=== PATIENT | male | born 1945 | race Caucasian/White ===

== ENCOUNTER 2020-09-10 10:15 | Day surgery (SDC) | payer OTHER, SELFPAY ==
[2020-09-10] MEDS: Tropicam./Phenyleph. (1/2.5%) 5 ML BTL OS ×3 (11:07→11:23)
[2020-09-10 11:15] VITALS: BP 110/79; PULSE 60; RESP 16; TEMP 36; O2SAT 96
--- NOTE | 2020-09-10 11:26 | ANES.PREOP_ITS ---
General Info Date of Service Date Performed: 09/10/20 Height: 5 ft 10 in Weight: 127.6 kg Body Mass Index (BMI): 40.4 Surgical Procedure: Operation Date: 09/10/20 13:55 Proposed Procedures Side Surgeon p Cataract Extraction with IOL Implant Left Ivan Kelly MD Meds Allergies and Home Medications Allergies Allergy/AdvReac Type Severity Reaction Status Date / Time No Known Allergies Allergy Unverified 09/10/20 11:12 Home Medication Medication Instructions Recorded albuterol sulfate 2 puff INHALATION DIRECTED 09/05/20 amlodipine 5 mg PO DAILY 09/05/20 atenolol 100 mg PO DAILY 09/05/20 citalopram 40 mg PO DAILY 09/05/20 cyanocobalamin (vitamin B-12) 1,000 mcg PO DAILY 09/05/20 [Vitamin B-12] fluticasone propionate 1 spray INTRANASAL BID 09/05/20 hydrochlorothiazide 50 mg PO QAM 09/05/20 hydrocodone-acetaminophen 1 tab PO QID PRN 09/05/20 lidocaine 1 applic TOPICAL TID PRN 09/05/20 methimazole 10 mg PO DAILY 09/05/20 potassium chloride 20 meq PO DAILY 09/05/20 Current Visit Medications: Current Medications Generic Name Dose Route Start Last Admin Trade Name Freq PRN Reason Stop Dose Admin Acetaminophen 1,000 mg 09/10/20 06:00 Acetaminophen 500 Mg Tab PO Q4H PRN PRN Miscellaneous Medication 0 ml 09/10/20 06:00 Prednisolone 1%, Moxifloxacin 0.5%, Nepafenac 0.1% 5ml Btl OS DIRECTED [facility] Miscellaneous Medication 0 ml 09/10/20 06:00 09/10/20 11:14 Tropicam./Phenyleph. 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.042 Medical History Medical History AAA (abdominal aortic aneurysm) Anxiety H/O agent [place] exposure Headache Hypertension Insomnia, unspecified [facility] current use of anticoagulant Lumbosacral spondylosis without myelopathy Obesity Osteoarthrosis PTSD (post-traumatic stress disorder) 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 Tobacco use Surgical History Surgical History (Updated 09/10/20 @ 11:11 by Scarlett Posey) History of pancreatic surgery Hx of colonoscopy Hx of inguinal hernia repair Hx of nasal polypectomy Hx of nasal septoplasty Hx of total knee replacement bilateral Tobacco Smoking/Tobacco Use Status: Former Tobacco Use Alcohol Alcohol Intake: never Substance Use Substance use: Never Substance use type: does not use Vital Signs and Lab Results Vital Signs Most Recent Vital Signs in EMR: Most Recent Vital Signs Temp Pulse Resp BP Pulse Ox 36 C L 60 16 110/79 96 09/10/20 11:15 09/10/20 11:15 09/10/20 11:15 09/10/20 11:15 09/10/20 11:15 Lab Results Blood Type / Crossmatch: No Data to Display Complete Blood Count: No Data to Display Complete Metabolic Panel: No Data to Display Liver Function Panel: No Data to Display Coagulation Panel: No Data to Display Cardiac Panel: No Data to Display Arterial Blood Gas: No Data to Display Venous Blood Gas: No Data to Display Pancreas Panel: No Data to Display Thyroid Panel: No Data to Display Infectious Disease: No Data to Display Blood Cultures: No Data to Display Toxicology Panel: No Data to Display Anesthesia Assessment and Plan Anesthesia History Personal History: No History of Anesthesia Complications Family History: No Family History of Anesthesia Complications Exercise Tolerance Exercise Tolerance: Metabolic Equivalents>4 Cardiac & Pulmonary Exam Cardiac Exam: Normal S1/S2 Heart Sounds Pulmonary Exam: Clear Bilateral Breath Sounds Airway Exam Known Difficult Airway: No Mallampati Class: 2 Mouth Opening: Normal (> 3cm) Thyromental Distance: Greater than 3 cm Neck Range of Motion: Full ROM Neck Circumference: Thick Teeth Condition: Removable Dentures/Plates Upper ASA Classification ASA Score: ASA 3 Emergency Case?: No NPO Status NPO Status: NPO Clears >2 hours, Solids >8 hours Anesthesia Plan Anesthesia Technique: MAC Anesthesia Airway Planned: Natural Airway Monitors Used: Standard Monitors
[2020-09-10 11:36] VITALS: BMI 40.4
[2020-09-10] MEDS: Tetracaine 0.5% 4 ML BTL OS (12:42)
[2020-09-10] MEDS: Balanced Salt Soln.-PLUS 500 ML BAG (12:42)
[2020-09-10] MEDS: Lidocaine 1% Pres-Free 5 ML VIAL (12:43)
[2020-09-10] MEDS: Duovisc Viscoelastic System EACH 1 EACH (12:43)
[2020-09-10] MEDS: Lidocaine 2% Jelly 6 ML SYR (12:44)
[2020-09-10] MEDS: Povidone-Iodine Ophth 30 ML BTL (12:45)
--- NOTE | 2020-09-10 13:04 | PDOC.DSDIS_ITS ---
Discharge Plan Disposition Patient Disposition: HOME Condition: Good Discharge Details Attending Provider: Ivan Kelly Primary Care Provider: Edgardo Newby Home Meds and New Rx's Prescriptions: No Action citalopram 40 mg Tablet 40 mg PO DAILY RF: 0 atenolol 100 mg Tablet 100 mg PO DAILY RF: 0 hydrochlorothiazide 50 mg Tablet 50 mg PO QAM RF: 0 hydrocodone-acetaminophen 5-325 mg Tablet 1 tab PO QID PRNRF: 0 cyanocobalamin (vitamin B-12) [Vitamin B-12] 1,000 mcg Tablet 1,000 mcg PO DAILY RF: 0 amlodipine 5 mg Tablet 5 mg PO DAILY RF: 0 methimazole 5 mg Tablet 10 mg PO DAILY RF: 0 albuterol sulfate 90 mcg/actuation Hfa Aerosol Inhaler 2 puff INHALATION DIRECTED RF: 0 fluticasone propionate 50 mcg/actuation [place],Suspension 1 spray INTRANASAL BID RF: 0 lidocaine 5 % Ointment 1 applic topical TID PRNRF: 0 potassium chloride 10 mEq Tablet Extended Release 20 meq PO DAILY RF: 0 Discharge Instructions Stand Alone Forms: Post-op Block Cataract, Post-op Topical Cataract, Nighat Whittaker (DSU) Discharge Orders Discharge Orders: Discharge Order (Routine); Ordered 09/10/20 Ordered By: Ivan Kelly DS: Diagnosis Discharge Diagnosis (1) Nuclear sclerotic cataract of left eye: Status: Resolved (2) Cortical cataract of left eye: Status: Resolved (3) Posterior subcapsular age-related cataract of left eye: Status: Resolved
--- NOTE | 2020-09-10 13:06 | W.PM.OP ---
Date of service: 09/10/20 Time of Service: 13:06 Operative Note Operative Note DATE OF PROCEDURE: 09/10/20 PRE-OP DIAGNOSIS: Nuclear/cortical/posterior subcapsular cataract, left eye POST-OP DIAGNOSIS: same PROCEDURE: Cataract extraction using phacoemulsification with intraocular lens implant, left eye SURGEON: Ivan Kelly ANESTHESIA TYPE: Local By Surgeon and MAC Refer to Anesthesia Record PATHOLOGY: none sent COMPLICATIONS: None Patient was transported to: same day Patient's condition: stable Implants: Lm and Lm Vision / [employer] Tecnis [id number] Indications: Progressive decreased vision due to cataract, left eye Procedure Description: CATARACT SURGERY OPERATIVE REPORT PREOPERATIVE DIAGNOSIS: Nuclear/cortical/posterior subcapsular cataract, left eye POSTOPERATIVE DIAGNOSIS: Same OPERATION: Cataract extraction using phacoemulsification with posterior chamber intraocular lens implant, left eye. IOL: IOL Resident Care Technician/Model: [employer] / JW Tecnis [id number] IOL Power: + +20.50 diopters IOL Serial Number: [id number] Optic Diameter: 6.0mm Haptic/Overall Diameter: 13.0mm PHACO INFO: [employer] Vision System with OZil and Active [employer]uidics Cumulative Dispersed Energy (CDE): 12.66 seconds SURGEON: Ivan Kelly MD, FAITH ANESTHESIA: Monitored Anesthesia Care (MAC), with local sub-tenon's anesthetic infiltration COMPLICATIONS: None SPECIMENS: None INDICATIONS FOR PROCEDURE: The patient is a 75-year-old gentleman with history of diminished visual acuity in his left eye secondary to the development of nuclear/cortical/posterior subcapsular cataract in the left eye. The option of cataract surgery was offered to the patient and he felt he was symptomatic enough that he wished to proceed. PROCEDURE: The correct surgical eye was identified and marked as the left eye and the pupil was dilated in the preoperative area using mydriatics and cycloplegics. The dilated pupil size was 7.0 mm. Oral sedation was administered in the form of an Imprimis MKO Melt (midazolam 3mg/ketamine 25mg/ondansetron 2mg). The patient was brought to the operating room where cardiopulmonary monitoring was instituted and surgical time-out was performed, confirming the correct operative eye and IOL power. Topical anesthesia was administered and ophthalmic povidone-iodine 5% was instilled into the conjunctival fornices. Lidocaine gel was applied to the cornea and the nora-ocular area was prepped with Betadine 10% solution and draped in the usual sterile fashion for intraocular surgery, including an aperture drape. A Tegaderm transparent film dressing was cut in half and used to cover the lashes and lid margins. Care was taken to sequester the lashes and lid margins under the Tegaderm dressing. A lid speculum was placed between the lids of the operative eye and the Jessica-Jimenez operating microscope was maneuvered into position. Mateus scissors were then used to make a conjunctival buttonhole approximately 6mm posterior to the limbus in the inferonasal quadrant. Blunt dissection was carried out to expose bare sclera, and a blunt-tipped sub-tenon?s anesthesia cannula was introduced and passed posteriorly along the globe where non-preserved plain lidocaine was injected into posterior sub-Tenon?s space. A sideport knife was used to make a paracentesis port superior/superiortemporally. Intraocular phenylephrine/lidocaine was injected into the anterior chamber. The anterior chamber was then filled with viscoelastic. A 2.4mm keratome knife was used to create a half-thickness groove at the limbus and then to construct a three-plane near-clear corneal tunnel extending 2.0mm into clear cornea in the temporal position. . A flap was raised on the anterior capsule and capsulorhexis forceps were used to complete a continuous curvilinear capsulorhexis of 5.5 mm. Balanced salt solution was then used to perform cortical cleaving hydrodissection and nuclear hydrodelineation until the lens could be freely rotated within the capsular bag. The lens nucleus was then disassembled and removed within the capsular bag and iris plane using phacoemulsification. Residual cortical material was removed using the 45-degree angled silicone I/A tip with 0.3mm port. The posterior capsule was carefully polished to remove as much residual lens epithelial cells as safely possible. The capsular bag was then inflated and the anterior chamber deepened with viscoelastic. The lens implant described above was inserted into the capsular bag using the [place] Injector. A Kuglen hook was used to dial the IOL into position. Residual viscoelastic was then removed first from posterior to the IOL, then from the anterior chamber using the I/A handpiece. The lens implant was noted to center nicely within the capsular bag. The incisions were stromally hydrated, and the anterior chamber was reformed using BSS. Then 0.5cc of moxifloxacin 1.0mg/ml were injected into the capsular bag and anterior chamber. The incisions were checked with a Weck spear and found to be secure. Several drops of ophthalmic povidone-iodine 5% were then applied to the eye followed by two drops of Imprimis combination prednisolone/moxifloxacin/nepafenac solution. The drapes were removed and a clear plastic protective eye shield was placed over the eye. The patient was then returned to Same Day Surgery in stable condition.
[2020-09-10 13:11] VITALS: BP 129/79; PULSE 61; RESP 16; TEMP 36.9; O2SAT 95
--- NOTE | 2020-09-10 13:14 | W.ANESPOSTOP ---
Postoperative Evaluation Date, Time and Location Date Performed: 09/10/20 Time Performed: 13:15 Patient Location: Day Surgery Unit Vital Signs Most Recent Imported Vital Signs: Most Recent Vital Signs Temp Pulse Resp BP Pulse Ox 36.9 C 61 16 129/79 95 09/10/20 13:11 09/10/20 13:11 09/10/20 13:11 09/10/20 13:11 09/10/20 13:11 Pain Score Most Recent Pain Score: Most Recent Pain Score Pain Level 0 09/10/20 13:11 Assessment Mental Status: Awake (Alert & Oriented to Patient Baseline) Airway and Respiratory Function: Patent airway with normal (patient baseline) respiratory exam Cardiovascular Function: Hemodynamically Stable Hydration Status: Adequately Hydrated Nausea & Vomiting: No Nausea or Vomiting Pain: Pt. Denies Any Pain Peripheral Nerve Block: Patient did not receive a nerve block
[2020-09-10 13:35] VITALS: BP 117/73; PULSE 60; RESP 16; TEMP 36.6; O2SAT 95
== END 2020-09-10 13:35 | disposition home or self-care (01) ==
PROVIDERS: PCP Physician Assistant Medical; Visit Provider Ophthalmology
PROC: (CPT 66984; principal; 2020-09-10 13:45)
DX: H25.12 Age-related nuclear cataract, left eye (principal); H25.042 Posterior subcapsular polar age-related cataract, left eye
CPT/HCPCS: 66984; V2632

== ENCOUNTER 2020-09-24 10:25 | Day surgery (SDC) | payer OTHER, SELFPAY ==
--- NOTE | 2020-09-23 18:53 | ANES.PREOP_ITS ---
General Info Date of Service Date Performed: 09/24/20 Height: 5 ft 10 in Weight: 127.6 kg Body Mass Index (BMI): 40.4 Surgical Procedure: Operation Date: 09/24/20 13:40 Proposed Procedures Side Surgeon p Cataract Extraction with IOL Implant Right Ivan Kelly MD Meds Allergies and Home Medications Allergies Allergy/AdvReac Type Severity Reaction Status Date / Time No Known Allergies Allergy Unverified 09/24/20 10:43 Home Medication Medication Instructions Recorded albuterol sulfate 2 puff INHALATION DIRECTED 09/05/20 amlodipine 5 mg PO DAILY 09/05/20 atenolol 100 mg PO DAILY 09/05/20 citalopram 40 mg PO DAILY 09/05/20 cyanocobalamin (vitamin B-12) 1,000 mcg PO DAILY 09/05/20 [Vitamin B-12] fluticasone propionate 1 spray INTRANASAL BID 09/05/20 hydrochlorothiazide 50 mg PO QAM 09/05/20 hydrocodone-acetaminophen 1 tab PO QID PRN 09/05/20 lidocaine 1 applic TOPICAL TID PRN 09/05/20 methimazole 10 mg PO DAILY 09/05/20 potassium chloride 20 meq PO DAILY 09/05/20 Current Visit Medications: Current Medications Generic Name Dose Route Start Last Admin Trade Name Freq PRN Reason Stop Dose Admin Acetaminophen 1,000 mg 09/24/20 06:00 Acetaminophen 500 Mg Tab PO Q4H PRN PRN Miscellaneous Medication 0 ml 09/24/20 06:00 Prednisolone 1%, Moxifloxacin 0.5%, Nepafenac 0.1% 5ml Btl OD DIRECTED [facility] Miscellaneous Medication 0 ml 09/24/20 06:00 Tropicam./Phenyleph. (1/2.5%) 5 Ml Btl OD DIRECTED [facility] Tetracaine HCl 0 ml 09/24/20 06:00 Tetracaine 0.5% 4 Ml Btl OD DIRECTED [facility] PFSH Active Problems Active Problems: Problem Status Onset Code Posterior subcapsular age-related cataract, right eye H25.041 Cortical cataract of right eye H26.9 Nuclear sclerotic cataract of right eye H25.11 Nuclear sclerotic cataract of left eye H25.12 Cortical cataract of left eye H26.9 Posterior subcapsular age-related cataract of left eye H25.042 Medical History Medical History AAA (abdominal aortic aneurysm) Anxiety H/O agent [place] exposure Headache Hypertension Insomnia, unspecified [employer] current use of anticoagulant Lumbosacral spondylosis without myelopathy Obesity Osteoarthrosis PTSD (post-traumatic stress disorder) 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 Tobacco use Surgical History Surgical History (Updated 09/24/20 @ 10:42 by Scarlett Posey) History of pancreatic surgery Hx of cataract surgery Hx of colonoscopy Hx of inguinal hernia repair Hx of nasal polypectomy Hx of nasal septoplasty Hx of total knee replacement bilateral Tobacco Smoking/Tobacco Use Status: Former Tobacco Use Alcohol Alcohol Intake: never Substance Use Substance use: Never Substance use type: does not use Vital Signs and Lab Results Lab Results Blood Type / Crossmatch: No Data to Display Complete Blood Count: No Data to Display Complete Metabolic Panel: No Data to Display Liver Function Panel: No Data to Display Coagulation Panel: No Data to Display Cardiac Panel: No Data to Display Arterial Blood Gas: No Data to Display Venous Blood Gas: No Data to Display Pancreas Panel: No Data to Display Thyroid Panel: No Data to Display Infectious Disease: No Data to Display Blood Cultures: No Data to Display Toxicology Panel: No Data to Display Anesthesia Assessment and Plan Anesthesia History Personal History: No History of Anesthesia Complications Family History: No Family History of Anesthesia Complications Exercise Tolerance Exercise Tolerance: Metabolic Equivalents>4 Pertinent Negatives Pertinent Negatives: No Symptoms of GERD, No Major Cardiovascular Symptoms or Complaints (HTN, AAA, ), No Major Pulmonary Symptoms or Complaints (COPD ) and No History of CVA/TIA Cardiac & Pulmonary Exam Cardiac Exam: Normal S1/S2 Heart Sounds Pulmonary Exam: Clear Bilateral Breath Sounds Airway Exam Known Difficult Airway: No Mallampati Class: 2 Mouth Opening: Normal (> 3cm) Thyromental Distance: Greater than 3 cm Neck Range of Motion: Full ROM Neck Circumference: Thick Teeth Condition: Removable Dentures/Plates Upper ASA Classification ASA Score: ASA 3 Emergency Case?: No NPO Status NPO Status: NPO Clears >2 hours, Solids >8 hours Anesthesia Plan Resuscitation Status: Full Code Anesthesia Technique: MAC Anesthesia Airway Planned: Natural Airway Monitors Used: Standard Monitors Preoperative Comments:: had MKO for previous cat
--- NOTE | 2020-09-24 10:27 | ANES.PREOP_ITS ---
General Info Date of Service Date Performed: 09/24/20 Height: 5 ft 10 in Weight: 127.6 kg Body Mass Index (BMI): 40.4 Surgical Procedure: Operation Date: 09/24/20 13:40 Proposed Procedures Side Surgeon p Cataract Extraction with IOL Implant Right Ivan Kelly MD Meds Allergies and Home Medications Allergies Allergy/AdvReac Type Severity Reaction Status Date / Time No Known Allergies Allergy Unverified 09/20/20 09:00 Home Medication Medication Instructions Recorded albuterol sulfate 2 puff INHALATION DIRECTED 09/05/20 amlodipine 5 mg PO DAILY 09/05/20 atenolol 100 mg PO DAILY 09/05/20 citalopram 40 mg PO DAILY 09/05/20 cyanocobalamin (vitamin B-12) 1,000 mcg PO DAILY 09/05/20 [Vitamin B-12] fluticasone propionate 1 spray INTRANASAL BID 09/05/20 hydrochlorothiazide 50 mg PO QAM 09/05/20 hydrocodone-acetaminophen 1 tab PO QID PRN 09/05/20 lidocaine 1 applic TOPICAL TID PRN 09/05/20 methimazole 10 mg PO DAILY 09/05/20 potassium chloride 20 meq PO DAILY 09/05/20 Current Visit Medications: Current Medications Generic Name Dose Route Start Last Admin Trade Name Freq PRN Reason Stop Dose Admin Acetaminophen 1,000 mg 09/24/20 06:00 Acetaminophen 500 Mg Tab PO Q4H PRN PRN Miscellaneous Medication 0 ml 09/24/20 06:00 Prednisolone 1%, Moxifloxacin 0.5%, Nepafenac 0.1% 5ml Btl OD DIRECTED [facility] Miscellaneous Medication 0 ml 09/24/20 06:00 Tropicam./Phenyleph. (1/2.5%) 5 Ml Btl OD DIRECTED [facility] Tetracaine HCl 0 ml 09/24/20 06:00 Tetracaine 0.5% 4 Ml Btl OD DIRECTED [facility] PFSH Active Problems Active Problems: Problem Status Onset Code Posterior subcapsular age-related cataract, right eye H25.041 Cortical cataract of right eye H26.9 Nuclear sclerotic cataract of right eye H25.11 Nuclear sclerotic cataract of left eye H25.12 Cortical cataract of left eye H26.9 Posterior subcapsular age-related cataract of left eye H25.042 Medical History Medical History AAA (abdominal aortic aneurysm) Anxiety H/O agent [place] exposure Headache Hypertension Insomnia, unspecified [employer] current use of anticoagulant Lumbosacral spondylosis without myelopathy Obesity Osteoarthrosis PTSD (post-traumatic stress disorder) 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 Tobacco use Surgical History Surgical History History of pancreatic surgery Hx of colonoscopy Hx of inguinal hernia repair Hx of nasal polypectomy Hx of nasal septoplasty Hx of total knee replacement bilateral Tobacco Smoking/Tobacco Use Status: Former Tobacco Use Alcohol Alcohol Intake: never Substance Use Substance use: Never Substance use type: does not use Vital Signs and Lab Results Lab Results Blood Type / Crossmatch: No Data to Display Complete Blood Count: No Data to Display Complete Metabolic Panel: No Data to Display Liver Function Panel: No Data to Display Coagulation Panel: No Data to Display Cardiac Panel: No Data to Display Arterial Blood Gas: No Data to Display Venous Blood Gas: No Data to Display Pancreas Panel: No Data to Display Thyroid Panel: No Data to Display Infectious Disease: No Data to Display Blood Cultures: No Data to Display Toxicology Panel: No Data to Display Anesthesia Assessment and Plan Anesthesia History Personal History: No History of Anesthesia Complications Family History: No Family History of Anesthesia Complications Airway Exam Known Difficult Airway: No Mallampati Class: 2 Mouth Opening: Normal (> 3cm) Thyromental Distance: Greater than 3 cm Neck Range of Motion: Full ROM Neck Circumference: Thick Teeth Condition: Removable Dentures/Plates Upper
[2020-09-24] MEDS: Tropicam./Phenyleph. (1/2.5%) 5 ML BTL OD ×3 (10:44→10:55)
[2020-09-24 10:47] VITALS: BP 110/71; PULSE 58; RESP 16; TEMP 36.5; O2SAT 95
[2020-09-24 11:34] VITALS: BMI 40.4
[2020-09-24] MEDS: Balanced Salt Soln.-PLUS 500 ML BAG (11:50)
[2020-09-24] MEDS: Tetracaine 0.5% 4 ML BTL OD (11:50)
[2020-09-24] MEDS: Lidocaine 1% Pres-Free 5 ML VIAL (11:51)
[2020-09-24] MEDS: Duovisc Viscoelastic System EACH 1 EACH (11:51)
[2020-09-24] MEDS: Lidocaine 2% Jelly 6 ML SYR (11:51)
[2020-09-24] MEDS: Povidone-Iodine Ophth 30 ML BTL (11:53)
[2020-09-24 12:11] VITALS: BP 106/77; PULSE 58; RESP 16; TEMP 36.1; O2SAT 93
--- NOTE | 2020-09-24 12:12 | W.ANESPOSTOP ---
Postoperative Evaluation Date, Time and Location Date Performed: 09/24/20 Time Performed: 12:12 Patient Location: Day Surgery Unit Vital Signs Most Recent Imported Vital Signs: Most Recent Vital Signs Temp Pulse Resp BP Pulse Ox 36.5 C 58 L 16 110/71 95 09/24/20 10:47 09/24/20 10:47 09/24/20 10:47 09/24/20 10:47 09/24/20 10:47 Most Recent Manually Entered Vital Signs: Adult Blood Pressure: 106/77 Heart Rate: 58 Respirations: 16 Oxygen Saturation (%): 94 Temperature (C): 36.1 C Pain Score (0-10 Scale): 0 Pain Score Most Recent Pain Score: Most Recent Pain Score Pain Level 4 09/24/20 10:47 Assessment Mental Status: Awake (Alert & Oriented to Patient Baseline) Airway and Respiratory Function: Patent airway with normal (patient baseline) respiratory exam Cardiovascular Function: Hemodynamically Stable Hydration Status: Adequately Hydrated Nausea & Vomiting: No Nausea or Vomiting Pain: Pt. Denies Any Pain Peripheral Nerve Block: Patient did not receive a nerve block
[2020-09-24 12:13] VITALS: BP 106/77; PULSE 58; RESP 16; TEMPC 36.1; O2SAT 94
--- NOTE | 2020-09-24 12:14 | PDOC.DSDIS_ITS ---
Discharge Plan Disposition Patient Disposition: HOME Condition: Good Discharge Details Attending Provider: Ivan Kelly Primary Care Provider: Edgardo Newby Home Meds and New Rx's Prescriptions: No Action citalopram 40 mg Tablet 40 mg PO DAILY RF: 0 atenolol 100 mg Tablet 100 mg PO DAILY RF: 0 hydrochlorothiazide 50 mg Tablet 50 mg PO QAM RF: 0 hydrocodone-acetaminophen 5-325 mg Tablet 1 tab PO QID PRNRF: 0 cyanocobalamin (vitamin B-12) [Vitamin B-12] 1,000 mcg Tablet 1,000 mcg PO DAILY RF: 0 amlodipine 5 mg Tablet 5 mg PO DAILY RF: 0 methimazole 5 mg Tablet 10 mg PO DAILY RF: 0 albuterol sulfate 90 mcg/actuation Hfa Aerosol Inhaler 2 puff INHALATION DIRECTED RF: 0 fluticasone propionate 50 mcg/actuation [place],Suspension 1 spray INTRANASAL BID RF: 0 lidocaine 5 % Ointment 1 applic topical TID PRNRF: 0 potassium chloride 10 mEq Tablet Extended Release 20 meq PO DAILY RF: 0 Discharge Instructions Stand Alone Forms: Post-op Topical Cataract, Nighat Whittaker (DSU) Discharge Orders Discharge Orders: Discharge Order (Routine); Ordered 09/24/20 Ordered By: Ivan Kelly DS: Diagnosis Discharge Diagnosis (1) Nuclear sclerotic cataract of right eye: Status: Resolved (2) Cortical cataract of right eye: Status: Resolved (3) Posterior subcapsular age-related cataract, right eye: Status: Resolved
--- NOTE | 2020-09-24 12:16 | ROE_ITS ---
Date of service: 09/24/20 Time of Service: 12:16 Operative Note Operative Note DATE OF PROCEDURE: 09/24/20 PRE-OP DIAGNOSIS: Nuclear/cortical/posterior subcapsular cataract, right eye POST-OP DIAGNOSIS: same PROCEDURE: Cataract extraction using phacoemulsification with intraocular lens implant, right eye SURGEON: Ivan Kelly ANESTHESIA TYPE: Local By Surgeon and MAC Refer to Anesthesia Record ESTIMATED BLOOD LOSS: 0 PATHOLOGY: none sent COMPLICATIONS: None Patient was transported to: same day Patient's condition: stable Implants: Lm [employer] / [employer] Tecnis ZCB00 intraocular lens Indications: Progressive decreased vision due to cataract, right eye Procedure Description: CATARACT SURGERY OPERATIVE REPORT PREOPERATIVE DIAGNOSIS: Nuclear/cortical/posterior subcapsular cataract, right eye POSTOPERATIVE DIAGNOSIS: Same OPERATION: Cataract extraction using phacoemulsification with posterior chamber intraocular lens implant, right eye. IOL: IOL Assessment Director/Model: [employer] / JW Tecnis ZCB00 IOL Power: + 20.0 diopters IOL Serial Number: [id number] Optic Diameter: 6.0mm Haptic/Overall Diameter: 13.0mm PHACO INFO: [employer] Vision System with OZil and [employer] Cumulative Dispersed Energy (CDE): 9.08 seconds SURGEON: Ivan Kelly MD, FAITH ANESTHESIA: Monitored Anesthesia Care (MAC), with local sub-tenon's anesthetic infiltration COMPLICATIONS: None SPECIMENS: None INDICATIONS FOR PROCEDURE: The patient is a 75-year-old gentleman with history of diminished visual acuity in both eyes secondary to the development of bilateral nuclear/cortical/posterior subcapsular cataract. He is significantly symptomatic that he desires cataract surgery and attempt to improve and maximize his vision. He has already undergone cataract surgery in the left eye and now presents for surgery in the right. PROCEDURE: The correct surgical eye was identified and marked as the right eye and the pupil was dilated in the preoperative area using mydriatics and cycloplegics. The dilated pupil size was 7.0 mm. Oral sedation was administered in the form of an Imprimis MKO Melt (midazolam 3mg/ketamine 25mg/ondansetron 2mg). The patient was brought to the operating room where cardiopulmonary monitoring was instituted and surgical time-out was performed, confirming the correct operative eye and IOL power. Topical anesthesia was administered and ophthalmic povidone-iodine 5% was instilled into the conjunctival fornices. Lidocaine gel was applied to the cornea and the nora-ocular area was prepped with Betadine 10% solution and draped in the usual sterile fashion for intraocular surgery, including an aperture drape. A Tegaderm transparent film dressing was cut in half and used to cover the lashes and lid margins. Care was taken to sequester the lashes and lid margins under the Tegaderm dressing. A lid speculum was placed between the lids of the operative eye and the Jessica-Jimenez operating microscope was maneuvered into position. Mateus scissors were then used to make a conjunctival buttonhole approximately 6mm posterior to the limbus in the inferonasal quadrant. Blunt dissection was carried out to expose bare sclera, and a blunt-tipped sub-tenon?s anesthesia cannula was introduced and passed posteriorly along the globe where non- preserved plain lidocaine was injected into posterior sub-Tenon?s space. A sideport knife was used to make a paracentesis port inferiortemporally. Intraocular phenylephrine/lidocaine was injected into the anterior chamber. The anterior chamber was then filled with viscoelastic. A 2.4mm keratome knife was used to create a half-thickness groove at the limbus and then to construct a three-plane near-clear corneal tunnel extending 2.0mm into clear cornea in the superiortemporal position. . A flap was raised on the anterior capsule and capsulorhexis forceps were used to complete a continuous curvilinear capsulorhexis of 5.0 mm. Balanced salt solution was then used to perform cortical cleaving hydrodissection and nuclear hydrodelineation until the lens could be freely rotated within the capsular bag. The lens nucleus was then disassembled and removed within the capsular bag and iris plane using phacoemulsification. Residual cortical material was removed using the I/A handpiece. The posterior capsule was carefully polished to remove as much residual lens epithelial cells as safely possible. The capsular bag was then inflated and the anterior chamber deepened with viscoelastic. The lens implant described above was inserted into the capsular bag using the JW [place] Injector. A Kuglen hook was used to dial the IOL into position. Residual viscoelastic was then removed first from posterior to the IOL, then from the anterior chamber using the I/A handpiece. The lens implant was noted to center nicely within the capsular bag. The incisions were stromally hydrated, and the anterior chamber was reformed using BSS. Then 0.5cc of moxifloxacin 1.0mg/ml were injected into the capsular bag and anterior chamber. The incisions were checked with a Weck spear and found to be secure. Several drops of ophthalmic povidone-iodine 5% were then applied to the eye followed by two drops of Imprimis combination prednisolone/moxifloxacin/nepafenac solution. The drapes were removed and a clear plastic protective eye shield was placed over the eye. The patient was then returned to [facility] in stable condition.
[2020-09-24 12:38] VITALS: BP 108/77; PULSE 61; RESP 16; TEMP 35.9; O2SAT 94
== END 2020-09-24 12:57 | disposition home or self-care (01) ==
PROVIDERS: PCP Physician Assistant Medical; Visit Provider Ophthalmology
PROC: (CPT 66984; principal; 2020-09-24 13:30)
DX: H25.11 Age-related nuclear cataract, right eye (principal); I10 Essential (primary) hypertension; Z79.01 Long term (current) use of anticoagulants; F17.210 Nicotine dependence, cigarettes, uncomplicated
CPT/HCPCS: 66984; V2632